=== PATIENT | male | born 1995 | race Two or more races ===

== ENCOUNTER 2018-03-08 14:52 | Outpatient (REF) | payer BC ==
[2018-03-13 00:06] LABS: H PYLORI STOOL ANTIGEN Negative (Negative)
== END 2018-03-11 ==
LOC: M SFHCLERA 14:52
DX: R14.2 Eructation (principal)
CPT/HCPCS: 87338

== ENCOUNTER → 2018-03-08 | Outpatient (CLI) | payer BC | LOC: M LRY 14:33 | DX: R14.2 Eructation (principal) | CPT/HCPCS: 71046 ==

== ENCOUNTER → 2018-03-09 | Outpatient (CLI) | payer BC | LOC: M LRY 19:01 | DX: S92.425A Nondisplaced fracture of distal phalanx of left great toe, initial encounter for closed fracture (principal); X58.XXXA Exposure to other specified factors, initial encounter; Y92.9 Unspecified place or not applicable | CPT/HCPCS: 73660 ==

== ENCOUNTER → 2018-09-20 | Outpatient (REF) | payer BC | LOC: M SFHCLERA 20:01 | PROVIDERS: ATTEND Nurse Practitioner Family | DX: R53.81 Other malaise (principal) ==

== ENCOUNTER → 2025-03-10 | Outpatient (CLI) | payer OTHER ==
[2025-03-10 15:12] LABS: BASO # 0.0 10^3/uL (0.0-0.2); BASO % 0.4 % (0.0-1.0); EOS # 0.2 10^3/uL (0.0-0.5); EOS % 1.8 % (0.0-3.0); LYMPH # 2.3 10^3/uL (1.5-5.0); LYMPH % 24.4 % (24.0-44.0); MONO # 0.6 10^3/uL (0.0-0.8); MONO % 6.8 % (2.0-8.0); NEUTROPHILS # 6.2 10^3/uL (1.5-8.5); NEUTROPHILS % 66.2 % (36.0-66.0); PLATELET COUNT, AUTOMATED 250 10^3/uL (150-450)
[2025-03-10 15:53] LABS: ALT/SGPT 27 U/L (7.0-40); AST/SGOT 15 U/L (<34); CALCIUM LEVEL 9.3 MG/DL (8.5-10.1); CARBON DIOXIDE LEVEL 25 MMOL/L (20-31); CHLORIDE LEVEL 104 MMOL/L (98-107); CHOLESTEROL LEVEL 178 MG/DL (<200); CHOLESTEROL RISK RATIO 3.86 (<5); CREATININE FOR GFR 0.77 MG/DL (0.70-1.30); GLOMERULAR FILTRATION RATE > 90.0 (>60); LDL CHOLESTEROL 109.3 MG/DL (<100); NON-HDL-C 131.9 MG/DL; POTASSIUM SERUM 3.9 MMOL/L (3.5-5.1); SODIUM LEVEL 141 MMOL/L (136-145); TRIGLYCERIDES LEVEL 113 MG/DL (<150)
[2025-03-10 15:56] LABS: ESTIMATED AVERAGE GLUCOSE 97.0 MG/DL (60-110)
== END ==
LOC: M LAB 14:02
PROVIDERS: ATTEND Psychiatry & Neurology Psychiatry
DX: Z51.81 Encounter for therapeutic drug level monitoring (principal); Z79.899 Other long term (current) drug therapy